=== PATIENT | female | born 1985 | race Caucasian/White ===

== ENCOUNTER 2020-03-01 14:39 | Emergency (ER) | payer OTHER | END 2020-03-01 15:09 | disposition home or self-care (01) | LOC: JVIRT 14:39 | DX: Z20.828 Contact with and (suspected) exposure to other viral communicable diseases (principal) | CPT/HCPCS: C9803; G2012-GT; Q3014-GT; U0003 ==

== ENCOUNTER 2020-03-11 12:20 | Emergency (ER) | payer BC | END 2020-03-11 15:16 | disposition home or self-care (01) | LOC: JVIRT 12:20 | DX: Z20.828 Contact with and (suspected) exposure to other viral communicable diseases (principal) | CPT/HCPCS: C9803; Q3014-GT; U0003 ==

== ENCOUNTER 2020-03-23 11:18 | Emergency (ER) | payer BC | END 2020-03-23 11:27 | disposition home or self-care (01) | LOC: JVIRT 11:18 | DX: Z20.822 Contact with and (suspected) exposure to COVID-19 (principal) | CPT/HCPCS: C9803; G2012-GT; U0003 ==